=== PATIENT | male | born 1985 | race African-American/Black ===

== ENCOUNTER 2017-01-01 07:36 | Emergency (ER) | payer OTHER ==
--- NOTE | ~2017-01-01 | EKG ---
PATIENT: DONNA ROSE UNIT #: [id number] Ventricular Rate: 92 BPM Atrial Rate: 92 BPM P-R Interval: 156 ms QRS Duration: 84 ms Q-T Interval: 352 ms QTC Calculation(Bezet): 435 ms P Sims: 76 degrees Calculated R Sims: -3 degrees Calculated T Sims: 48 degrees Diagnosis Line: Normal sinus rhythm Diagnosis Line: Normal ECG Diagnosis Line: No previous ECGs available Diagnosis Line: Confirmed by ANIBAL ANDREWS MD ([id number]) on 01/01/2017 Diagnosis Line: 5:46:05 PM INTERPRETING MD: DARRYL ELLIS
--- NOTE | ~2017-01-01 | EKG ---
PATIENT: DONNA ROSE UNIT #: [id number] Ventricular Rate: 72 BPM Atrial Rate: 72 BPM P-R Interval: 174 ms QRS Duration: 80 ms Q-T Interval: 370 ms QTC Calculation(Bezet): 405 ms P Sod: 52 degrees Calculated R Sod: -16 degrees Calculated T Sod: 4 degrees Diagnosis Line: Normal sinus rhythm Diagnosis Line: Normal ECG Diagnosis Line: No previous ECGs available Diagnosis Line: Confirmed by ANIBAL ANDREWS MD ([id number]) on 01/01/2017 Diagnosis Line: 5:46:29 PM INTERPRETING MD: DARRYL ELLIS
--- NOTE | ~2017-01-01 | CR72 ---
[facility] A Service of [facility] & [facility] RADIOLOGY TEXT RESULTS PATIENT: DONNA ROSE LOCATION: [facility] : 85 UNIT #: [id number] AGE: [address]: Fany France MD SEX: M ORDER DR: [id number] [facility] [address] [place], [place] [address] [id number] MR#: [id number] Acc #: [id number] NAME: DONNA ROSE : 1985 SEX: M STUDY DATE/TIME: 01/01/2017 7:48 UNIT: [facility] ROOM: STUDY DESCRIPTION: CR Chest Single View Portable Attending Physician: Fany France M.D. Ordering Physician: Fany France M.D. Primary Care Physician: Generic Doctor Not In System MEDICAL IMAGING REPORT This report is preliminary unless electronic signature is present EXAM Portable chest INDICATION Chest pain today. FINDINGS A portable view of the chest was obtained. Heart size and vascularity are normal. The lungs are clear. The bones are unremarkable. IMPRESSION No active disease. Dictated by... Jas Jackson M.D. THIS IS AN ELECTRONICALLY VERIFIED REPORT Jas Jackson M.D. at 01/01/2017 2:17 PM ANGI/hudson TD: 01/01/2017 09:20 JOB #: [id number] MEDICAL IMAGING REPORT COPY
[~2017-01-01 07:36] MED LIST: ULTRAM PO
[2017-01-01 07:44] LABS: BASOPHIL# 0.1 X10e3 (0-0.3); BASOPHIL% 1.5 % (0-2.5); EOSINOPHIL# 0.7 X10e3 (0-0.7); EOSINOPHIL% 8.8 % (0.0-7.0); HEMATOCRIT 43.6 % (38.0-50.0); HEMOGLOBIN 14.4 gm/dL (13.0-16.0); LYMPHOCYTE# 1.5 X10e3 (1.0-3.5); LYMPHOCYTE% 19.7 % (17.0-45.0); MEAN CELL VOLUME 93.5 FL (83-96); MEAN CORPUSCULAR HGB CONC 33.1 g/dL (30-36); MONOCYTE# 0.5 X10e3 (0-1.0); MONOCYTE% 6.6 % (3.0-12.0); NEUTROPHIL# 4.7 X10e3 (1.5-7.1); NEUTROPHIL% 63.4 % (40-75); PLATELET COUNT 201 X10e3 (140-420); RED BLOOD COUNT 4.66 X10e (3.90-5.60); RED CELL DISTRIBUTION WIDTH 13.3 % (11.0-15.5); WHITE BLOOD COUNT 7.4 X10e3 (4.0-10.5)
[2017-01-01 07:51] LABS: DIFF IND NO
[2017-01-01 08:19] LABS: ALBUMIN SERUM 4.4 g/dL (3.5-5.0); ALKALINE PHOSPHATASE 60 U/L (32-92); ALT (SGPT) 21 U/L (10-40); AST (SGOT) 22 U/L (10-42); BILIRUBIN, DIRECT 0.1 mg/dL (0.0-0.2); BILIRUBIN,INDIRECT 0.3 mg/dL (0.0-0.9); BILIRUBIN,TOTAL 0.4 mg/dL (0.2-2.0); BLOOD UREA NITROGEN 13 mg/dL (9-23); BUN/CREATININE RATIO 14.44; CALCIUM SERUM 8.8 mg/dL (8.4-10.2); CARBON DIOXIDE 25 mmol/L (22-31); CHLORIDE 103 mmol/L (100-111); CREATININE SERUM 0.9 mg/dL (0.6-1.4); GLOM FILT RATE Estimated ABOVE60 mL/min (>60); GLUCOSE FASTING 90 mg/dL (70-110); POTASSIUM 3.7 mmol/L (3.5-5.1); PROTEIN TOTAL SERUM 7.8 g/dL (6.0-8.3); SODIUM 135 mmol/L (135-145)
[2017-01-01 08:55] LABS: POC - CKMB 1.1 ng/mL (0.0-7.9); POC - TROPONIN <0.05 ng/mL (<=0.05)
[2017-01-01 09:09] LABS: POC - CKMB 1.1 ng/mL (0.0-7.9); POC - TROPONIN <0.05 ng/mL (<=0.05)
== END 2017-01-01 10:01 | disposition home or self-care (01) ==
LOC: CED 07:36
PROVIDERS: Student in an Organized Health Care Education/Training Program
DX: R07.9 Chest pain, unspecified (principal); I10 Essential (primary) hypertension; Z88.5 Allergy status to narcotic agent; F17.200 Nicotine dependence, unspecified, uncomplicated
CPT/HCPCS: 36415; 71010; 80048; 80076; 82553; 84484; 85025; 93005; 99284